=== PATIENT | female | born 1990 | race Caucasian/White ===

== ENCOUNTER 2016-05-24 13:13 | Emergency (ER) | payer SELFPAY ==
[~2016-05-24] VITALS: Ht 170.2 cm; Wt 62.1 kg
[2016-05-24 13:23] VITALS: BP 102/65
[2016-05-24] MEDS: NACL 0.9% 1,000 ML IV ONE (15:49)
[2016-05-24] MEDS: diphenhydrAMINE 50 MG/ML VIAL IVP ONE (15:57)
[2016-05-24] MEDS: PROCHLORPERAZINE 10 MG/2 ML VIAL IVP ONE (15:57)
[2016-05-24] MEDS: SUMAtriptan 6 MG/0.5 ML VIAL SUBQ ONE (16:02)
[2016-05-24 17:00] VITALS: BP 129/66
== END 2016-05-24 17:01 | disposition home or self-care (01) ==
LOC: MED 13:13
DX: G43.809 Other migraine, not intractable, without status migrainosus (principal); E86.0 Dehydration
CPT/HCPCS: 81002; 81025; 96361; 96372; 96374; 96375; 99284; J0780; J1200; J3030; J7030